=== PATIENT | female | born 1965 | race Caucasian/White ===

== ENCOUNTER 2016-06-02 18:22 | Emergency (ER) | payer MEDICAID, OTHER ==
[~2016-06-02] VITALS: Ht 162.6 cm; Wt 131.5 kg
[~2016-06-02 18:22] MED LIST: AMLO5TAB4 PO; ENAL10TA PO; HYDR25TA4 PO; IBUP-1955 PO; SIMV20TA2 PO
--- NOTE | 2016-06-02 19:10 | NUR ---
To bed 1 a 50 yo female bibself with c/of left knee pain s/p "hearing a crack on the left knee as I pulled myself to exit my car about 7 days ago." Patient also reports pain on the right hand, worse with movement. Patient is aax4, ambulatory. No s/s of acute distress. Dr Iniguez at the bedside for eval.
--- NOTE | 2016-06-02 19:13 | NUR ---
Betsey hammond in [facility] - 06/02/16 at 1913 by RITA report given to nurse Tamara bocanegra
[2016-06-02] MEDS ORDERED: HYDROCODONE/APAP 10/325MG 1 EA TABLET ONE (19:25)
[2016-06-02] MEDS ORDERED: ONDANSETRON 4 MG TAB.RAPDIS ONE (19:25)
[2016-06-02] MEDS ORDERED: HYDROCODONE/APAP 10/325MG 1 EA TABLET PO ONE (19:30)
[2016-06-02] MEDS ORDERED: ONDANSETRON 4 MG TAB.RAPDIS PO ONE (19:30)
--- NOTE | 2016-06-02 19:36 | NUR ---
xr at the bedside.
--- NOTE | 2016-06-02 20:22 | NUR ---
Dr Iniguez at bedside.
--- NOTE | 2016-06-02 20:30 | NUR ---
Patient discharged to home in stable condition. Written and verbal after care instructions given. Patient verbalizes understanding of instruction. Patient ambulatory with a steady gait.
[2016-06-02 20:43] VITALS: BP 165/85
== END 2016-06-02 20:44 | disposition home or self-care (01) ==
LOC: ER 18:26
DX: S60.221A Contusion of right hand, initial encounter (principal); M17.9 Osteoarthritis of knee, unspecified; E78.00 Pure hypercholesterolemia, unspecified; G89.29 Other chronic pain; I10 Essential (primary) hypertension; M19.90 Unspecified osteoarthritis, unspecified site; W10.8XXA Fall (on) (from) other stairs and steps, initial encounter; Y93.89 Activity, other specified; Y92.89 Other specified places as the place of occurrence of the external cause; Y99.9 Unspecified external cause status
CPT/HCPCS: 73130-TC; 73564-TC; A4606; Q0162; Z7610

== ENCOUNTER 2018-10-13 07:01 | Emergency (ER) | payer MEDICAID, OTHER ==
[~2018-10-13] VITALS: Ht 167.6 cm; Wt 117.9 kg
--- NOTE | 2018-10-13 07:10 | NUR ---
PT BIBHUSBAND C/O DIFFICULTY SWALLOWING X3 DAYS. +L EAR ACHE, +SORE THROAT, SEEN BY MD YESTERDAY AND REC'D CORTISONE SHOT X1 DAY AGO. PT IS AAOX4, NOT IN RESPIRATORY DISTRESS, HOOKED TO MONITOR. KEPT RESTED AND COMFORTABLE, WILL CONTINUE TO MONITOR.
--- NOTE | 2018-10-13 07:18 | NUR ---
SEEN AND EXAMINED BY DR. LANIER.
[2018-10-13] MEDS ORDERED: KETOROLAC TROMETHAMINE INJ 30 MG/ML VIAL ONE ×2 (07:21→17:13)
[2018-10-13] MEDS ORDERED: CEFTRIAXONE 1GM BAG (ER ONLY) 50 ML IV ONE (07:21)
[2018-10-13] MEDS ORDERED: DEXAMETHASONE SOD PHOSPHATE 10 MG/ML VIAL ONE (07:21)
[2018-10-13] MEDS ORDERED: DEXAMETHASONE SOD PHOSPHATE 10 MG/ML VIAL IV ONE (07:30)
[2018-10-13] MEDS ORDERED: KETOROLAC TROMETHAMINE INJ 30 MG/ML VIAL IV ONE ×2 (07:30→17:30)
[2018-10-13] MEDS ORDERED: IV NS 0.9% 1,000 ML BAG IV ONE (07:30)
[2018-10-13] MEDS ORDERED: CEFTRIAXONE 1 G in IV D5W 50 ML IV ONE (07:30)
--- NOTE | 2018-10-13 07:30 | NUR ---
IV LINE ESTABLISHED, BLOOD DRAWNED AND SENT TO LAB.
[2018-10-13 07:35] LABS: BASOPHILS # (AUTO) 0.1 /CMM (0.0-0.2); BASOPHILS % (AUTO) 0.3 % (0.0-2.0); HEMATOCRIT 44 % (33-45); HEMOGLOBIN 14.4 g/dL (11.5-14.8); LYMPHOCYTES # (AUTO) 1.3 /CMM (0.8-4.8); LYMPHOCYTES % (AUTO) 5.4 % (20.0-44.0); MEAN CORPUSCULAR HGB CONC 33 g/dl (31.0-36.0); MEAN CORPUSCULAR VOLUME 82 fL (82-100); MONOCYTES # (AUTO) 1.3 /CMM (0.1-1.30); MONOCYTES % (AUTO) 5.4 % (2.0-12.0); NEUTROPHILS # (AUTO) 21.7 /CMM (1.8-8.9); NEUTROPHILS % (AUTO) 88.9 % (43.0-81.0); PLATELET COUNT (AUTO) 299 /CMM (150-450); RED BLOOD CELL COUNT(AUTO) 5.32 MIL/uL (4.0-5.2); WHITE BLOOD COUNT (AUTO) 24.4 K/uL (4.3-11.0)
[2018-10-13 07:55] LABS: CALCIUM, SERUM 9.8 mg/dL (8.5-10.1); CREATININE 0.8 mg/dL (0.6-1.3); POTASSIUM 3.9 mmol/L (3.5-5.1)
[2018-10-13 08:00] LABS: ALBUMIN 3.9 g/dL (3.4-5.0); BILIRUBIN,DIRECT 0.1 mg/dL (0.0-0.2); BILIRUBIN,TOTAL 0.7 mg/dL (0.2-1.0); TOTAL PROTEIN, SERUM 9.4 g/dL (6.4-8.2)
[2018-10-13] MEDS ORDERED: CT SWABBABLE VALVE TRANS SET 1 EA INFUS.SET MC ONE (08:03)
[2018-10-13] MEDS ORDERED: IOHEXOL-300 100 ML VIAL IV ONE (08:03)
[2018-10-13] MEDS ORDERED: IV NS 0.9% 250 ML IV ONE (08:03)
--- NOTE | 2018-10-13 08:08 | NUR ---
PT IS WHEELED TO CT SCAN VIA [facility].
[2018-10-13] MEDS ORDERED: LEVO500T90 PO (08:15)
[2018-10-13 08:20] LABS: LYMPHOCYTES % (MANUAL) 9 % (16-48); MONOCYTES % (MANUAL) 6 % (0-11.0); NEUTROPHILS % (MANUAL) 85 (42-76)
--- NOTE | 2018-10-13 08:44 | NUR ---
CALLED OFFICE OF DR LUDWIG, PER SPECIAL INVESTIGATION UNIT INVESTIGATOR DR LUDWIG HAS NOT BEEN PAID FROM LAST PATIENT, WILL POSSIBLY NOT ACCEPT THIS PT DUE TO INSURANCE. SHE PRESENT CASE AND CALL BACK.
--- NOTE | 2018-10-13 08:54 | NUR ---
CALLED OFFICE OF DR CHAMBERS AND DR WOODY, PER STAFF NEITHER DOCTOR GOES TO [facility] ANY MORE, WILL PRESENT CASE AND CALL BACK
[2018-10-13] MEDS ORDERED: METH4TAB17 PO (08:58)
[2018-10-13] MEDS ORDERED: VANCOMYCIN 1 GM in IV D5W 250 ML IV ONE (09:00)
[2018-10-13] MEDS ORDERED: PIPERACILLIN /TAZOBACTAM 3.375 G in IV D5W 50 ML IV ONE ×2 (09:00→18:00)
--- NOTE | 2018-10-13 09:04 | NUR ---
CALLED [facility] FOR THIS PATIENT AWAITING CALL BACK
--- NOTE | 2018-10-13 09:16 | NUR ---
PER OFFICE OF OZIEL, HE IS IN SURGERY ALL DAY, UNAVAILABLE FOR CONSULT
--- NOTE | 2018-10-13 10:22 | NUR ---
SPOKE TO NICK MCGILL AT [facility], FAXED FACESHEET AND CLINICALS [phone]
[2018-10-13] MEDS ORDERED: MORPHINE SULFATE INJ 2 MG/ML DISP.SYRIN ONE (13:05)
[2018-10-13] MEDS ORDERED: MORPHINE SULFATE INJ 2 MG/ML DISP.SYRIN IV ONE (13:30)
--- NOTE | 2018-10-13 14:19 | NUR ---
CALLED [facility], NO ENT AVAILABLE
--- NOTE | 2018-10-13 14:20 | NUR ---
CALLED [facility], PER HOUSE SUP THIS IS NOT CONSIDER A HIGHER LEVEL OF CARE.
--- NOTE | 2018-10-13 14:21 | NUR ---
CALLED [facility], FAXED FACE SHEET ([phone]). NOT LIKELY TO ACCEPT DUE TO NO BEDS.
--- NOTE | 2018-10-13 14:22 | NUR ---
[facility] CALLED AT [phone] FOR HIGH LEVEL OF CARE [place], DR MARTÍNEZ RECOMMENDS TX TO [facility]
--- NOTE | 2018-10-13 14:29 | NUR ---
CALLED [facility] [place] KATHRYN,SPOKE WITH ISABELA,COMPLETELY FULL BUT STILL WANTS CLINICALS FAXED TO [phone]
--- NOTE | 2018-10-13 14:30 | NUR ---
CALLED NANO AT [facility] TRANSFER CENTER TO FOLLOW UP WITH ACCEPTENCE. SHE STATED THAT SHE IS STILL WAITING FOR CALL BACK FROM ENT
--- NOTE | 2018-10-13 14:57 | NUR ---
[facility] CALLED,SPOKE WITH KEENAN, NO BED
--- NOTE | 2018-10-13 15:04 | NUR ---
BENJI WADE CALLED, AT [facility])
--- NOTE | 2018-10-13 15:50 | NUR ---
[facility], NO [facility]
--- NOTE | 2018-10-13 17:15 | NUR ---
DR VALERIO,ANESTHESIOLOGIST, WHO IS IN OR, INFORMED THAT WE MAY HAVE A DIFFICULT INTUBATION AND THAT DR HIRSCH WANTS HER TO SEE PT BEFORE THEY LEAVE FOR [facility].
--- NOTE | 2018-10-13 17:19 | NUR ---
[facility] CALLED,NO CCT
--- NOTE | 2018-10-13 17:21 | NUR ---
[facility] CALLED, STILL GETTING A HOLD OF THEIR ATTENDING
--- NOTE | 2018-10-13 17:22 | NUR ---
CALLED [facility] FOR CCT TRANSPORT (CODE [address]IRS[address]), 30 MIN ETA, TRIP #[id number].
--- NOTE | 2018-10-13 17:41 | NUR ---
SECOND IV LINE ESTABLISHED L AC G18.
--- NOTE | 2018-10-13 17:44 | NUR ---
DR HIRSCH INFORMED THAT 2ND DOSE OF ZOSYN IS DUE, VERBAL ORDER TO GIVE ANOTHER DOSE,PHARMACY CALLED.
--- NOTE | 2018-10-13 18:03 | NUR ---
DR VALERIO AT BEDSIDE WITH DR HIRSCH
--- NOTE | 2018-10-13 18:15 | NUR ---
DR OZIEL THRASHER, HIS NURSE SAID SHE WILL PAGE HIM AND GIVE US A CALL BACK
--- NOTE | 2018-10-13 18:15 | NUR ---
REPORT GIVEN TO SIDDHARTH ORTIZ OF [facility] FOR DENICE.
--- NOTE | 2018-10-13 18:32 | NUR ---
DR KLEIN CALLED PER ADMIN AND TX TO DR HIRSCH
--- NOTE | 2018-10-13 18:51 | NUR ---
REPORT GIVEN TO CCT RN FOR PT TRANSFER TO [facility]
[2018-10-13 18:52] VITALS: BP 143/73
== END 2018-10-13 18:54 | disposition short-term general hospital (02) ==
LOC: ER 07:05
DX: K12.2 Cellulitis and abscess of mouth (principal); A41.9 Sepsis, unspecified organism; I10 Essential (primary) hypertension; E78.00 Pure hypercholesterolemia, unspecified; M19.90 Unspecified osteoarthritis, unspecified site; Z90.89 Acquired absence of other organs; Z98.890 Other specified postprocedural states
CPT/HCPCS: 36415; 70491; 71045; 80048; 80076; 83605; 83690; 85025; 85730; 87040 ×2; 96365; 96366; 96367; 96368; 96375; 96376; 99291; 99292; J0696 ×2; J1100; J1885 ×2; J2270; J2543 ×2; J3370; J7030; J7050; J7060 ×4; Q9967

== ENCOUNTER 2019-08-09 10:55 | Emergency (ER) | payer MEDICARE, OTHER ==
[~2019-08-09] VITALS: Ht 167.6 cm; Wt 137.4 kg
[~2019-08-09 10:55] MED LIST changes: -AMLO5TAB4 PO; -ENAL10TA PO; -HYDR25TA4 PO; -IBUP-1955 PO; +LEVO500T90 PO; +METH4TAB17 PO; -SIMV20TA2 PO
[2019-08-09 11:00] VITALS: BP 176/99
== END 2019-08-09 11:46 | disposition home or self-care (01) ==
LOC: ER 11:02
DX: M25.552 Pain in left hip (principal); M54.30 Sciatica, unspecified side; I10 Essential (primary) hypertension; E78.00 Pure hypercholesterolemia, unspecified; Z90.89 Acquired absence of other organs; Z98.890 Other specified postprocedural states; Z79.899 Other long term (current) drug therapy

== ENCOUNTER 2020-03-01 02:04 | Emergency (ER) | payer MEDICARE, OTHER ==
[~2020-03-01] VITALS: Ht 167.6 cm; Wt 142.9 kg
--- NOTE | 2020-03-01 02:21 | NUR ---
PATIENT CAME TO ER BED 9 C/ONON-RADIATING MIDSTERNAL CHEST PAIN SINCE 30x MINUTES STORE HOST. PATIENT STATES THAT SHE ALSO FEELS LIKE SHE HAS A LUMP IN HER THROAT, BILATERALLY NUMB FINGERS, AND DIZZINESS. PATIENT IS AAOX4. NO SOB .BREATHING EVENLY AND UNLABORED ON ROOM AIR. AMBULATORY WITH A WALKER.
--- NOTE | 2020-03-01 02:29 | NUR ---
BLOOD DRAWN AND SENT TO THE LAB.
[2020-03-01] MEDS: LORAZEPAM INJ 2 MG/ML VIAL IV ONE (02:30)
[2020-03-01] MEDS ORDERED: ASPIRIN 325 MG TABLET ONE (02:46)
[2020-03-01 02:47] LABS: BASOPHILS % (AUTO) 0.4 % (0.0-2.0); CALCIUM, SERUM 9.2 mg/dL (8.5-10.1); CARBON DIOXIDE 29 mmol/L (21-32); CHLORIDE 99 mmol/L (98-107); CREATININE 0.7 mg/dL (0.6-1.3); EOSINOPHILS % (AUTO) 2.3 % (0.0-6.0); GLUCOSE 164 mg/dL (74-106); HEMATOCRIT 39 % (33-45); HEMOGLOBIN 12.6 g/dL (11.5-14.8); LYMPHOCYTES # (AUTO) 3.3 /CMM (0.8-4.8); LYMPHOCYTES % (AUTO) 32.3 % (20.0-44.0); MEAN CORPUSCULAR HGB CONC 33 g/dl (31.0-36.0); MEAN CORPUSCULAR VOLUME 82 fL (82-100); MONOCYTES # (AUTO) 0.7 /CMM (0.1-1.30); MONOCYTES % (AUTO) 6.8 % (2.0-12.0); NEUTROPHILS % (AUTO) 58.2 % (43.0-81.0); PLATELET COUNT (AUTO) 259 /CMM (150-450); POTASSIUM 3.3 mmol/L (3.5-5.1); RED BLOOD CELL COUNT(AUTO) 4.74 MIL/uL (4.0-5.2); SODIUM SERUM 138 mmol/L (136-145); UREA NITROGEN, BLOOD 10 mg/dL (7-18); WHITE BLOOD COUNT (AUTO) 10.3 K/uL (4.3-11.0)
[2020-03-01] MEDS ORDERED: LORAZEPAM INJ 2 MG/ML VIAL ONE (02:47)
[2020-03-01 02:59] LABS: ALANINE AMINOTRANSFERASE 40 U/L (12-78); ALBUMIN 3.9 g/dL (3.4-5.0); ALKALINE PHOSPHATASE 102 U/L (46-116); ASPARTATE AMINOTRANSFERASE 25 U/L (15-37); B-TYPE NATRIURETIC PEPTIDE 92 PG/ML (0-125); BILIRUBIN,DIRECT 0.1 mg/dL (0.0-0.2); BILIRUBIN,TOTAL 0.2 mg/dL (0.2-1.0); TOTAL PROTEIN, SERUM 8.4 g/dL (6.4-8.2)
[2020-03-01] MEDS: ASPIRIN 325 MG TABLET PO ONE (03:21)
--- NOTE | 2020-03-01 04:46 | NUR ---
Patient discharged to home in stable condition. Written and verbal after care instructions given. Patient verbalizes understanding of instruction.
--- NOTE | 2020-03-01 04:46 | NUR ---
IV removed. Catheter intact and site benign. Pressure and 4x4 applied to site. No bleeding noted.
[2020-03-01 05:23] VITALS: BP 134/77
== END 2020-03-01 04:46 | disposition home or self-care (01) ==
LOC: ER 02:05
DX: R07.89 Other chest pain (principal); F41.9 Anxiety disorder, unspecified; R42 Dizziness and giddiness; E66.01 Morbid (severe) obesity due to excess calories; E78.00 Pure hypercholesterolemia, unspecified; I10 Essential (primary) hypertension; E11.9 Type 2 diabetes mellitus without complications; Z68.43 Body mass index [BMI] 50.0-59.9, adult; Z90.89 Acquired absence of other organs; Z98.51 Tubal ligation status; Z79.899 Other long term (current) drug therapy
CPT/HCPCS: 36415; 71045; 80048; 80076; 83880; 84484; 85025; 93005; 96374; 99285; J2060

== ENCOUNTER 2020-06-19 05:11 | Emergency (ER) | payer MEDICARE, OTHER ==
[~2020-06-19] VITALS: Ht 160 cm; Wt 137.9 kg
--- NOTE | 2020-06-19 05:16 | NUR ---
KAMILLA FROM HOME FOR C/O "I WOKE UP W/ FAST HEARTBEAT, L UNDERARM PAIN AND DIZZINESS" SHE DESCRIBES THE DIZZINESS ROOM SPINNING AROUND HER HEAD AND WORSE WHILE LAYING DOWN. PT DENIED CP, SOB, FEVER OR CHILLS. REPORTED SHE TOOK A DOSE OF NORVASC 5MG? AND UNKNOWN DOSE OF [employer] NETWORK SPECIALIST. PT WAS TRANSFERRED TO BED 3 ER AND WAS PLACED ON A MONITOR . SLIGHTLY ELEVATED BP. WILL CONT TO MONITOR
--- NOTE | 2020-06-19 05:21 | NUR ---
EMT AT BEDSIDE FOR EKG
--- NOTE | 2020-06-19 05:24 | NUR ---
DR ALVAREZ AT BED SIDE
[2020-06-19] MEDS ORDERED: LORAZEPAM 0.5 MG TABLET PO ONE (05:30)
[2020-06-19] MEDS ORDERED: NITROGLYCERIN PACKET 1 GM PACKET TD ONE (05:30)
[2020-06-19] MEDS ORDERED: LORAZEPAM 0.5 MG TABLET ONE (05:32)
[2020-06-19] MEDS ORDERED: NITROGLYCERIN PACKET 1 GM PACKET ONE (05:32)
--- NOTE | 2020-06-19 05:37 | NUR ---
DISPLAY CARVER AT BEDSIDE FOR BLOOD WORK.
[2020-06-19 05:45] LABS: BASOPHILS # (AUTO) 0.1 /CMM (0.0-0.2); BASOPHILS % (AUTO) 1.5 % (0.0-2.0); EOSINOPHILS % (AUTO) 1.8 % (0.0-6.0); HEMATOCRIT 39 % (33-45); HEMOGLOBIN 12.5 g/dL (11.5-14.8); LYMPHOCYTES % (AUTO) 27.4 % (20.0-44.0); MEAN CORPUSCULAR HGB CONC 32 g/dl (31.0-36.0); MEAN CORPUSCULAR VOLUME 83 fL (82-100); MONOCYTES # (AUTO) 0.5 /CMM (0.1-1.30); MONOCYTES % (AUTO) 6.9 % (2.0-12.0); NEUTROPHILS # (AUTO) 4.6 /CMM (1.8-8.9); NEUTROPHILS % (AUTO) 62.4 % (43.0-81.0); PLATELET COUNT (AUTO) 229 /CMM (150-450); RED BLOOD CELL COUNT(AUTO) 4.67 MIL/uL (4.0-5.2); WHITE BLOOD COUNT (AUTO) 7.4 K/uL (4.3-11.0)
--- NOTE | 2020-06-19 06:00 | NUR ---
BACK FROM CT
[2020-06-19 06:20] LABS: ALANINE AMINOTRANSFERASE 47 U/L (12-78); ALBUMIN 3.5 g/dL (3.4-5.0); ALKALINE PHOSPHATASE 89 U/L (46-116); ASPARTATE AMINOTRANSFERASE 32 U/L (15-37); B-TYPE NATRIURETIC PEPTIDE 114 PG/ML (0-125); BILIRUBIN,DIRECT 0.1 mg/dL (0.0-0.2); BILIRUBIN,TOTAL 0.2 mg/dL (0.2-1.0); CALCIUM, SERUM 8.7 mg/dL (8.5-10.1); CARBON DIOXIDE 29 mmol/L (21-32); CHLORIDE 104 mmol/L (98-107); CREATININE 0.7 mg/dL (0.6-1.3); GLUCOSE 149 mg/dL (74-106); POTASSIUM 3.5 mmol/L (3.5-5.1); SODIUM SERUM 141 mmol/L (136-145); TOTAL PROTEIN, SERUM 7.3 g/dL (6.4-8.2); UREA NITROGEN, BLOOD 10 mg/dL (7-18)
[2020-06-19 07:12] VITALS: BP 144/79
--- NOTE | 2020-06-19 07:12 | NUR ---
Pt is medically stable for D/C. IV removed. Catheter intact and site benign. Pressure and 4x4 applied to site. No bleeding noted.Patient discharged to home in stable condition. Written and verbal after care instructions given. Patient verbalizes understanding of instruction.
== END 2020-06-19 07:20 | disposition home or self-care (01) ==
LOC: ER 05:14
DX: I10 Essential (primary) hypertension (principal); R07.89 Other chest pain; R20.2 Paresthesia of skin; E11.9 Type 2 diabetes mellitus without complications; E78.00 Pure hypercholesterolemia, unspecified; E66.01 Morbid (severe) obesity due to excess calories; Z68.43 Body mass index [BMI] 50.0-59.9, adult; Z90.89 Acquired absence of other organs; Z90.49 Acquired absence of other specified parts of digestive tract; Z98.890 Other specified postprocedural states; Z79.899 Other long term (current) drug therapy
CPT/HCPCS: 36415; 70450-TC; 71045-TC; 80048-TC; 80076-TC; 83880; 84484-TC; 85025-TC

== ENCOUNTER 2022-06-21 05:02 | Inpatient (IN) | payer MEDICARE, OTHER ==
[~2022-06-21] VITALS: Ht 162.6 cm; Wt 140.2 kg
--- NOTE | 2022-06-21 06:05 | NUR ---
BIBSELF C/O RIGHT SIDE ABD PAIN RAD TO RIGHT BACK X 6 DAYS. PT IS A/O X 4 RR EVEN AND UNLABORED NO SOB NOTED. PT CONNECTED TO CARDIAC AND POX MONITOR. PT IS AFEBRILE. JALEEL CRUZ. AWAITING MD LOPEZ.
--- NOTE | 2022-06-21 06:10 | NUR ---
URINE COLLECTED SENT TO LAB
--- NOTE | 2022-06-21 06:25 | NUR ---
IV JEFFREY G20 INSERTED ON RIGHT UPPER ARM. BLOOD DRAWN AND SENT TO LAB
[2022-06-21] MEDS ORDERED: ONDANSETRON HCL/PF 4 MG/2 ML VIAL ONE (06:26)
[2022-06-21] MEDS ORDERED: MORPHINE SULFATE INJ 4 MG/ML DISP.SYRIN ONE (06:27)
[2022-06-21] MEDS ORDERED: ONDANSETRON HCL/PF 4 MG/2 ML VIAL IVP ONE (06:30)
[2022-06-21] MEDS ORDERED: MORPHINE SULFATE INJ 2 MG/ML DISP.SYRIN IV ONE (06:30)
[2022-06-21] MEDS ORDERED: IV NS 0.9% 500 ML BAG IV ONE (06:30)
[2022-06-21 07:10] LABS: BASOPHILS # (AUTO) 0.1 K/uL (0.0-0.2); BASOPHILS % (AUTO) 0.5 % (0.0-2.0); EOSINOPHILS % (AUTO) 1.3 % (0.0-6.0); HEMATOCRIT 38 % (33-45); HEMOGLOBIN 12.1 g/dL (11.5-14.8); LYMPHOCYTES # (AUTO) 3.1 K/uL (0.8-4.8); LYMPHOCYTES % (AUTO) 23.8 % (20.0-44.0); MEAN CORPUSCULAR HGB CONC 32 g/dl (31.0-36.0); MEAN CORPUSCULAR VOLUME 81 fL (82-100); MONOCYTES # (AUTO) 0.9 K/uL (0.1-1.30); MONOCYTES % (AUTO) 7.2 % (2.0-12.0); NEUTROPHILS # (AUTO) 8.8 K/uL (1.8-8.9); NEUTROPHILS % (AUTO) 67.2 % (43.0-81.0); PLATELET COUNT (AUTO) 292 K/uL (150-450); RED BLOOD CELL COUNT(AUTO) 4.64 MIL/uL (4.0-5.2); WHITE BLOOD COUNT (AUTO) 13.1 K/uL (4.3-11.0)
[2022-06-21 07:15] LABS: CALCIUM, SERUM 9.6 mg/dL (8.5-10.1); CARBON DIOXIDE 25 mmol/L (21-32); CHLORIDE 99 mmol/L (98-107); CREATININE 0.6 mg/dL (0.6-1.3); GLUCOSE 224 mg/dL (74-106); POTASSIUM 4.9 mmol/L (3.5-5.1); SODIUM SERUM 135 mmol/L (136-145); UREA NITROGEN, BLOOD 19 mg/dL (7-18)
[2022-06-21 07:20] LABS: ALANINE AMINOTRANSFERASE 52 U/L (12-78); ALBUMIN 3.4 g/dL (3.4-5.0); ALKALINE PHOSPHATASE 87 U/L (46-116); ASPARTATE AMINOTRANSFERASE 47 U/L (15-37); BILIRUBIN,DIRECT 0.1 mg/dL (0.0-0.2); BILIRUBIN,TOTAL 0.5 mg/dL (0.2-1.0); LIPASE 80 U/L (73-393); TOTAL PROTEIN, SERUM 7.8 g/dL (6.4-8.2)
--- NOTE | 2022-06-21 07:20 | NUR ---
REPORT GIVEN TO SIDDHARTH MARION AND SIDDHARTH AVILES
--- NOTE | 2022-06-21 07:21 | NUR ---
BROUGHT PT TO CT DEPT
--- NOTE | 2022-06-21 07:30 | NUR ---
CHANGE OF SHIFT REPORT PT RESTING COMFORTABLY IN BED. NO S/S OR C/O PAIN OR DISTRESS NOTED. SIDE RAILS UP X2, CALL LIGHT LEFT WITHIN REACH. PT KEPT CLEAN, DRY, AND COMFORTABLE. WILL GIVE REPORT TO DANIELLA MESSINA. Addendum: 06/21/22 at 1825 by DEANNE CARRASQUILLO RN WRONG TIME: 1830 CHANGE OF SHIFT REPORT PT RESTING COMFORTABLY IN BED. NO S/S OR C/O PAIN OR DISTRESS NOTED. SIDE RAILS UP X2, CALL LIGHT LEFT WITHIN REACH. PT KEPT CLEAN, DRY, AND COMFORTABLE. WILL GIVE REPORT TO DANIELLA MESSINA.
--- NOTE | 2022-06-21 07:30 | NUR ---
PT RECEIVED RESTING COMFORTABLY IN BED. NO S/S OR C/O PAIN OR DISTRESS NOTED. SIDE RAILS UP X2, CALL LIGHT LEFT WITHIN REACH. WILL CONTINUE PLAN OF CARE. Addendum: 06/21/22 at 1824 by DEANNE CARRASQUILLO RN WRONG PATIENT
--- NOTE | 2022-06-21 07:43 | NUR ---
covid swab collected and sent to lab
[2022-06-21] MEDS ORDERED: PIPERACILLIN /TAZOBACTAM 3.375 G in IV D5W 50 ML IV ONE (08:00)
--- NOTE | 2022-06-21 08:39 | NUR ---
report given to kaela for continuation of care Addendum: 06/21/22 at 0912 by RENÉE report given to [place] ricardo
--- NOTE | 2022-06-21 09:10 | NUR ---
MS ADMIT FROM ER AFTER REPORT RECEIVED FROM FAYE MESSINA. PATIENT ORIENTED TO PRIMARY RN, UNIT, ROOM, BED, AND UNIT POLICIES REGARDING PATIENT CARE AND VISITING HOURS. PATIENT ENCOURAGED TO CALL IF THEY NEED SOMETHING. ALL QUESTIONS AND CONCERNS ADDRESSED, PATIENT VERBALIZED UNDERSTANDING.
[2022-06-21] MEDS ORDERED: MELO-105 PO (09:31)
[2022-06-21] MEDS ORDERED: ALBU18HF2 INH (09:31)
[2022-06-21] MEDS ORDERED: OMEG10006 PO (09:31)
[2022-06-21] MEDS ORDERED: ASPI-1420 PO (09:31)
[2022-06-21] MEDS ORDERED: DICL100G34 TP (09:31)
[2022-06-21] MEDS ORDERED: SIMV-46 PO (09:31)
[2022-06-21] MEDS ORDERED: MAGN400T26 PO (09:31)
[2022-06-21] MEDS ORDERED: AMLO-213 PO (09:31)
[2022-06-21] MEDS ORDERED: ERGO500093 PO (09:31)
[2022-06-21] MEDS ORDERED: METF-440 PO (09:31)
[2022-06-21] MEDS ORDERED: METO25TA20 PO (09:31)
[2022-06-21] MEDS ORDERED: HYDR100T27 PO (09:31)
[2022-06-21] MEDS ORDERED: CYAN-51 PO (09:31)
[2022-06-21 10:00] VITALS: BP 135/70
[2022-06-21] MEDS ORDERED: LIDOCAINE 1% INJ 50 ML MDV IJ ONE (13:58)
[2022-06-21] MEDS ORDERED: BUPIVACAINE 0.5 % PF 150 MG/30 ML VIAL ONE (13:58)
[2022-06-21] MEDS ORDERED: BUPIVACAINE MPF 0.5% W/EPI INJ 30 ML VIAL ONE (13:58)
[2022-06-21] MEDS ORDERED: ANESTHESIA TRAY IN PYXIS 1 EA TRAY MC ONE (13:59)
[2022-06-21] MEDS ORDERED: IV D5/0.45 NACL 1,000 ML IV PRN (14:00)
[2022-06-21] MEDS ORDERED: ONDANSETRON HCL/PF 4 MG/2 ML VIAL IVP PRN (14:00)
[2022-06-21] MEDS ORDERED: FENTANYL PF 250MCG/5ML AMPUL ONE (14:18)
[2022-06-21] MEDS ORDERED: HYDROMORPHONE INJ 2 MG/ML DISP.SYRIN ONE (14:19)
[2022-06-21] MEDS ORDERED: MIDAZOLAM HCL 2 MG/2ML VIAL ONE (14:19)
[2022-06-21] MEDS ORDERED: MEPERIDINE25 MG SYR 25 MG/ML VIAL ONE (14:19)
[2022-06-21] MEDS ORDERED: ESMOLOL INJ 100 MG/10 ML VIAL IV ONE (14:45)
[2022-06-21] MEDS ORDERED: SEVOFLURANE 250 ML BOTTLE IH ONE (14:54)
[2022-06-21] MEDS ORDERED: VECURONIUM 10 MG VIAL ONE (15:08)
[2022-06-21] MEDS: PIPERACILLIN /TAZOBACTAM 3.375 G in IV D5W 100 ML IV SCH (17:28)
[2022-06-21] MEDS: MORPHINE SULFATE INJ 2 MG/ML DISP.SYRIN IV PRN (17:29)
[2022-06-21] MEDS ORDERED: ACETAMINOPHEN 325 MG TABLET PO PRN (17:30)
[2022-06-21] MEDS ORDERED: PIPERACILLIN /TAZOBACTAM 4.5 G in IV D5W 50 ML IV SCH (18:00)
--- NOTE | 2022-06-21 18:26 | NUR ---
CHANGE OF SHIFT REPORT PT RESTING COMFORTABLY IN BED. NO S/S OR C/O PAIN OR DISTRESS NOTED. SIDE RAILS UP X2, CALL LIGHT LEFT WITHIN REACH. PT KEPT CLEAN, DRY, AND COMFORTABLE. WILL GIVE REPORT TO DANIELLA MESSINA.
--- NOTE | 2022-06-21 19:30 | NUR ---
MS RN OPENING NOTE RECEIVED PATIENT IN BED, WITH HOB ELEVATED, AWAKE, ALERT AND ORIENTED X4. AFEBRILE AND NOT IN ANY FORM OF ACUTE DISTRESS. ON O2 INHALATION VIA NASAL CANNULA AT 4LPM. S/O LAP CHOLECYSTECTOMY, NO C/O PAIN OR DISCOMFORT AT THIS TIME. WITH DERECK DRAIN INTACT, DRAINING WITH SANGUINEOUS OUTPUT. WITH IV ACCESS ON MONICA 20G RUNNING WITH D5 1/2NS AT 75ML/HR. SAFETY MEASURES IN PLACE. KEPT BED IN LOCKED AND IN LOW POSITION. SIDE RAILS UP X2. ADVISED TO USE THE CALL LIGHT WHEN IN NEED OF ASSISTANCE.
[2022-06-21 20:05] VITALS: BP 109/65
[2022-06-22] MEDS: PIPERACILLIN /TAZOBACTAM 3.375 G in IV D5W 100 ML IV SCH ×3 (01:06→18:36)
[2022-06-22] MEDS: MORPHINE SULFATE INJ 2 MG/ML DISP.SYRIN IV PRN ×3 (05:46→20:27)
--- NOTE | 2022-06-22 06:24 | NUR ---
MS RN CLOSING NOTE PATIENT IN BED, WITH HOB ELEVATED, ASLEEP, BUT EASY TO AROUSE AND RESPONSIVE. ALERT AND ORIENTED X4. AFEBRILE AND NOT IN ANY FORM OF ACUTE DISTRESS. ON O2 INHALATION VIA NASAL CANNULA AT 4LPM. S/P LAP CHOLECYSTECTOMY, MONITORED FOR ANY POSSIBLE COMPLICATION. WITH DERECK DRAIN INTACT, DRAINING WITH SANGUINEOUS OUTPUT AT APPROX. 25ML DURING THE SHIFT. WITH IV ACCESS ON MONICA 20G RUNNING WITH D5 1/2NS AT 75ML/HR. MEDICATED ORDERED. CONTINUOUS ON IV ATB, MONITORED FOR ANY ADVERSE REACTION. SAFETY MEASURES IN PLACE. KEPT BED IN LOCKED AND IN LOW POSITION. SIDE RAILS UP X2. ADVISED TO USE THE CALL LIGHT WHEN IN NEED OF ASSISTANCE. ALL NURSING NEEDS ATTENDED. ENDORSED TO INCOMING SHIFT FOR CONTINUITY OF CARE.
[2022-06-22 06:27] LABS: BASOPHILS % (AUTO) 0.1 % (0.0-2.0); HEMATOCRIT 33 % (33-45); HEMOGLOBIN 10.7 g/dL (11.5-14.8); LYMPHOCYTES # (AUTO) 1.4 K/uL (0.8-4.8); LYMPHOCYTES % (AUTO) 13.5 % (20.0-44.0); MEAN CORPUSCULAR HGB CONC 33 g/dl (31.0-36.0); MEAN CORPUSCULAR VOLUME 82 fL (82-100); MONOCYTES # (AUTO) 0.6 K/uL (0.1-1.30); MONOCYTES % (AUTO) 6.2 % (2.0-12.0); NEUTROPHILS # (AUTO) 8.3 K/uL (1.8-8.9); NEUTROPHILS % (AUTO) 80.2 % (43.0-81.0); PLATELET COUNT (AUTO) 263 K/uL (150-450); WHITE BLOOD COUNT (AUTO) 10.4 K/uL (4.3-11.0)
[2022-06-22 07:07] LABS: CALCIUM, SERUM 8.9 mg/dL (8.5-10.1); CREATININE 0.7 mg/dL (0.6-1.3); MAGNESIUM 1.9 mg/dL (1.8-2.4); PHOSPHORUS 4.5 mg/dL (2.5-4.9); POTASSIUM 4.6 mmol/L (3.5-5.1)
--- NOTE | 2022-06-22 07:13 | NUR ---
MS RN CLOSING NOTE RECEIVED PATIENT IN BED, WITH HOB ELEVATED, ASLEEP, BUT EASILY AWAKEN. AOX4. ON OXYGEN INHALATION VIA NASAL CANNULA AT 4LPM SATURATING AT 98% WITHOUT DIFFICULTY. S/P LAP CHOLECYSTECTOMY, MONITORED FOR ANY POSSIBLE COMPLICATION. AFEBRILE AND NOT IN ANY FORM OF ACUTE DISTRESS. WITH DERECK DRAIN INTACT, SEROSANGUINEOUS FLUID DRAINING. WITH IV ACCESS ON MONICA G#20 RUNNING WITH D5 1/2NS AT 75ML/HR. PAIN IN CONTROLLED AT THIS MOMENT, NO COMPLAINS OF N/V. + BOWEL SOUNDS BUT HASNT PASSED FLATUS YET. ENCOURAGED AMBULATION. SAFETY MEASURES IN PLACE: BED IN LOCKED AND IN LOWEST POSITION. SIDE RAILS UP X2. ORIENTED TO ROOM AND STAFF. WILL CONTINUE TO MONITOR. Addendum: 06/22/22 at 1042 by ABDIAZIZ BARROS RN MS RN OPENING NOTES
[2022-06-22 08:29] VITALS: BP 131/76
--- NOTE | 2022-06-22 08:42 | NUR ---
RN NOTES - DIET CHANGED BACK TO NPO FOR NOW, ACTIVATED DIET TOO EARLY IN ERROR. PATIENT IS YET TO PASS GAS AND A LITTLE NAUSEOUS BUT REFUSED MEDICATION, NO VOMITING. ASKED FOR ICE CHIPS AND TOOTHETTES, GIVEN. WILL CONTINUE TO MONITOR.
--- NOTE | 2022-06-22 10:45 | NUR ---
RN NOTES - PATIENT COMPLAINING OF 9/10 ABDOMINAL PAIN - REQUESTED FOR PAIN MEDICATION - GIVEN MORPHINE 2MG IVP, WILL CONTINUE TO MONITOR.
--- NOTE | 2022-06-22 11:48 | NUR ---
RN NOTES - MRSA SPECIMEN COLLECTED FROM BOTH NARES - CALLED LAB TO GET SPECIMEN IN THE FRIDGE
[2022-06-22 14:40] LABS: CALCIUM, SERUM 9.2 mg/dL (8.5-10.1); CREATININE 0.8 mg/dL (0.6-1.3); POTASSIUM 3.9 mmol/L (3.5-5.1)
[2022-06-22 14:46] LABS: ALBUMIN 3.2 g/dL (3.4-5.0); BILIRUBIN,TOTAL 0.5 mg/dL (0.2-1.0); TOTAL PROTEIN, SERUM 7.4 g/dL (6.4-8.2)
[2022-06-22 16:45] VITALS: BP 121/79
--- NOTE | 2022-06-22 18:47 | NUR ---
MS RN CLOSING NOTE PATIENT IS IN HER ROOM, WALKING AROUND USING HER FWW, STEADY, AOX4, STABLE ON ROOM AIR, BREATHING WITHOUT DIFFICULTY. S/P LAP CHOLECYSTECTOMY, NO POST-OP COMPLICATIONS NOTED, AFEBRILE, PAIN IS CONTROLLED, + BOWEL SOUNDS, WITH DERECK DRAIN DRAINED SEROSANGUINEOUS FLUID ABOUT 23 ML. IV ACCESS ON MONICA G#20 PATENT, FLUSHING WELL DRAINING D5 1/2 NS @75 ML/PER. PAIN IN CONTROLLED AT THIS MOMENT, NO COMPLAINS OF N/V. ENCOURAGED AMBULATION. SAFETY MEASURES IN PLACE: BED IN LOCKED AND IN LOWEST POSITION. SIDE RAILS UP X2. ORIENTED TO ROOM AND STAFF. WILL ENDORSE TO ACADEMIC MANAGER NURSE.
--- NOTE | 2022-06-22 19:10 | NUR ---
RN opening notes Received Pt from morning nurse. Pt is sitting in bed comfortably accompanied by Pt's . On room air. No SOB. No S/s of distress noted. MONICA midline# 20 is clean, intact and infusing well zosyn abx. ABX dressing is intact with DERECK drain intact and patent. Safety precautions is maintained. Bed at low position, brakes locked, side rails upX2, hob elevated and call light is within reach. Will continue to monitor. Addendum: 06/23/22 at 0757 by BRENTON CLEMENTS RN IV site at MONICA # 20 not midline
[2022-06-22 20:00] VITALS: BP 106/67
--- NOTE | 2022-06-22 20:27 | NUR ---
RN notes Pt is complaining of abd pain 10/10 on pain scale. Administered morphine/iv/prn as ordered for pain. VS is stable. safety precautions is maintained. will continue to monitor.
--- NOTE | 2022-06-22 20:55 | NUR ---
RN notes Informed and notify Dr. Nance that Pt is requesting stool softener. MD ordered colace 100mg/bid/po. order carried out.
[2022-06-22] MEDS: DOCUSATE SODIUM 100 MG CAPSULE PO SCH (21:25)
[2022-06-23] MEDS: PIPERACILLIN /TAZOBACTAM 3.375 G in IV D5W 100 ML IV SCH ×2 (01:48→09:26)
[2022-06-23 06:39] LABS: BASOPHILS % (AUTO) 0.4 % (0.0-2.0); EOSINOPHILS % (AUTO) 2.1 % (0.0-6.0); HEMATOCRIT 30 % (33-45); LYMPHOCYTES # (AUTO) 2.9 K/uL (0.8-4.8); LYMPHOCYTES % (AUTO) 31.7 % (20.0-44.0); MEAN CORPUSCULAR HGB CONC 33 g/dl (31.0-36.0); MEAN CORPUSCULAR VOLUME 82 fL (82-100); MONOCYTES # (AUTO) 0.7 K/uL (0.1-1.30); NEUTROPHILS # (AUTO) 5.3 K/uL (1.8-8.9); NEUTROPHILS % (AUTO) 57.8 % (43.0-81.0); PLATELET COUNT (AUTO) 239 K/uL (150-450); RED BLOOD CELL COUNT(AUTO) 3.69 MIL/uL (4.0-5.2); WHITE BLOOD COUNT (AUTO) 9.2 K/uL (4.3-11.0)
[2022-06-23 07:05] LABS: ALBUMIN 2.6 g/dL (3.4-5.0); BILIRUBIN,TOTAL 0.4 mg/dL (0.2-1.0); CALCIUM, SERUM 8.5 mg/dL (8.5-10.1); CREATININE 0.7 mg/dL (0.6-1.3); POTASSIUM 3.4 mmol/L (3.5-5.1); TOTAL PROTEIN, SERUM 6.1 g/dL (6.4-8.2)
[2022-06-23 07:30] VITALS: BP 137/78
--- NOTE | 2022-06-23 07:40 | NUR ---
RN closing notes Pt is resting in bed comfortbaly. On 4 L NC. No SOB. No S/s of distress noted. Vs is stable. Routine meds were given as ordred. MONICA midline# 20 is clean, intact and infusing well D5 1/2ns @ 75ml/hr. abd dressing is intact with DERECK drain intact and patent 35ml. Kept Pt clean, dry and comfortable. All needs met and attended. Safety precautions is maintained. Bed at low position, brakes locked, side rails upX2, hob elevated and call light is within reach. Will endorse to am nurse for DENICE. Addendum: 06/23/22 at 0756 by BRENTON CLEMENTS RN IV site MONICA# 20 not midline
--- NOTE | 2022-06-23 07:50 | NUR ---
RN OPENING NOTE PATIENT AWAKE IN BED RESTING, A/O X 4. NO S/S OF PAIN NOTED AT THIS TIME. ON 4L OXYGEN VIA NC, BREATHING EVEN UNLABORED, NO DISTRESS OR SHORTNESS OF BREATH NOTED. IV ACCESS MONICA #20G INTACT, PATENT AND FLUSHING WELL, RUNNING D5 1/2NS @ 75 ML/HR. FALL AND SAFETY MEASURES IN PLACE, BED ALARM ON, BED IN LOW AND LOCK POSITION, CALL LIGHT AND TABLE WITHIN EASY REACH, SIDE RAILS UP X2. WILL CONTINUE TO MONITOR.
[2022-06-23] MEDS: DOCUSATE SODIUM 100 MG CAPSULE PO SCH ×2 (09:17→17:00)
[2022-06-23] MEDS ORDERED: POTASSIUM CHLORIDE 20 MEQ TAB.PRT.SR PO ONE (11:00)
[2022-06-23] MEDS ORDERED: BISACODYL SUPP (10 MG) 10 MG/SUPP.RECT SUPP.RECT RC PRN (12:00)
[2022-06-23] MEDS ORDERED: MAG HYDROX/AL HYDROX/SIMETH 30 ML UDC PO PRN (13:00)
[2022-06-23 16:00] VITALS: BP 131/82
--- NOTE | 2022-06-23 17:30 | NUR ---
ADULT SECONDARY EDUCATION INSTRUCTOR NOTE PATIENT DISCHARGE IN STABLE MEDICAL CONDITION. A/O X4. V/S TAKEN, STABLE AND RECORDED. NAME BAND REMOVED. SKIN ASSESSMENT DONE AND PICTURES TAKEN. ALL BELONGING CHECKED AND BELONGING LIST SIGNED. HEALTH TEACHING INSTRUCTIONS GIVEN AND VERBALIZED UNDERSTANDING. INSTRUCTED PATIENT TO FOLLOW UP WITH DOCTOR, TO FOLLOW UP WITH DOCTOR HARSHA INFORMATION PROVIDED, AND INCASE OF EMERGENCY TO GO TO NEAREST ER OR CALL 911. WOUND CARE WAS IMPLEMENTED BEFORE DISCHARGE AND EDUCATED PATIENT ON WOUND CARE, PROBVIDED PATIENT WITH WOUND CARE SUPPLY. PATIENT LEFT UNIT VIA WHEELCHAIR WITH NO SIGN OF DISTRESS ACCOMPANIED BY ACID CONDITIONING WORKER TO THE LOBBY. CHARGE NURSE AWARE.
== END 2022-06-23 17:30 | disposition home or self-care (01) | DRG 418 ==
LOC: ER 05:04 → MED 08:33
PROC: 0FT44ZZ Resection of Gallbladder, Percutaneous Endoscopic Approach (ICD-10-PCS; principal; 2022-06-21)
DX: K80.00 Calculus of gallbladder with acute cholecystitis without obstruction (principal); Z68.43 Body mass index [BMI] 50.0-59.9, adult; E66.01 Morbid (severe) obesity due to excess calories; E11.9 Type 2 diabetes mellitus without complications; I10 Essential (primary) hypertension; E78.5 Hyperlipidemia, unspecified; M19.90 Unspecified osteoarthritis, unspecified site; Z20.822 Contact with and (suspected) exposure to COVID-19
CPT/HCPCS: 36415; 71045-TC; 76705-TC; 80048-TC; 80053-TC; 80076-TC; 82962-TC; 83605-TC; 83690-TC; 83735-TC; 84100-TC; 84484-TC; 85025-TC; 85730-TC; 87040-TC; 87081-TC; A4223; A6403; C9803; G0378; J0330; J0690; J1100; J1170; J1885; J2175; J2250; J2270; J2405; J2543; J2704; J2765; J3010; J3490; J7040; J7060

== ENCOUNTER 2022-07-03 12:36 | Emergency (ER) | payer MEDICARE, OTHER ==
[~2022-07-03] VITALS: Ht 162.6 cm; Wt 137.4 kg
[~2022-07-03 12:36] MED LIST changes: +ALBU18HF2 INH; +AMLO-213 PO; +ASPI-1420 PO; +CYAN-51 PO; +DICL100G34 TP; +ERGO500093 PO; +HYDR100T27 PO; -LEVO500T90 PO; +MAGN400T26 PO; +MELO-105 PO; +METF-440 PO; -METH4TAB17 PO; +METO25TA20 PO; +OMEG10006 PO; +SIMV-46 PO
[2022-07-03] MEDS ORDERED: ACETAMINOPHEN 325 MG TABLET PO ONE (13:30)
[2022-07-03] MEDS ORDERED: IBUPROFEN 600 MG TABLET PO ONE (13:30)
[2022-07-03] MEDS ORDERED: IBUPROFEN 600 MG TABLET ONE (14:07)
[2022-07-03] MEDS ORDERED: ACETAMINOPHEN 325 MG TABLET ONE (14:07)
[2022-07-03] MEDS ORDERED: SULF1TAB48 PO (15:06)
[2022-07-03] MEDS ORDERED: CEPH500C2 PO (15:06)
[2022-07-03 15:25] VITALS: BP 145/84
== END 2022-07-03 15:26 | disposition home or self-care (01) ==
LOC: ER 12:48
DX: L03.116 Cellulitis of left lower limb (principal); L03.115 Cellulitis of right lower limb; I10 Essential (primary) hypertension; E78.5 Hyperlipidemia, unspecified; E11.9 Type 2 diabetes mellitus without complications; Z90.89 Acquired absence of other organs; Z90.49 Acquired absence of other specified parts of digestive tract; Z79.899 Other long term (current) drug therapy
CPT/HCPCS: 93970-TC

== ENCOUNTER 2023-06-07 13:04 | Emergency (ER) | payer MEDICARE, OTHER ==
[~2023-06-07] VITALS: Ht 167.6 cm; Wt 134.7 kg
[~2023-06-07 13:04] MED LIST changes: +CEPH500C2 PO; +SULF1TAB48 PO
[2023-06-07 13:13] VITALS: TEMP 98.7
[2023-06-07 13:42] LABS: APPEARANCE,URINE Clear (CLEAR); BILIRUBIN,URINE SMALL (NEGATIVE); BLOOD, URINE Negative Ery/uL (NEGATIVE); COLOR,URINE YELLOW (YELLOW); KETONES,URINE Trace mg/dL (NEGATIVE); LEUKOCYTE ESTERASE ,URINE Small (NEGATIVE); NITRITE, URINE Negative (NEGATIVE); PH,URINE 5.5 (5.0-8.0); PROTEIN,URINE Trace mg/dl (NEGATIVE); UGLUCOSE Negative (NEGATIVE); UROBILINOGEN,URINE 0.2 EU/dL (0.2)
[2023-06-07 13:48] LABS: ADD URINE CULTURE YES; BACTERIA,URINE Few /HPF (None Seen); MUCUS,URINE Few /LPF (None Seen); RBC,URINE NONE SEEN /HPF (0-2)
[2023-06-07 13:57] LABS: BASOPHILS % (AUTO) 0.6 % (0.0-2.0); EOSINOPHILS # (AUTO) 0.1 K/uL (0.0-0.7); EOSINOPHILS % (AUTO) 1.5 % (0.0-6.0); HEMATOCRIT 38 % (33-45); HEMOGLOBIN 12.3 g/dL (11.5-14.8); LYMPHOCYTES # (AUTO) 2.3 K/uL (0.8-4.8); LYMPHOCYTES % (AUTO) 28.1 % (20.0-44.0); MEAN CORPUSCULAR HEMOGLOBIN 26 PG (26.0-33.0); MEAN CORPUSCULAR HGB CONC 32 g/dl (31.0-36.0); MEAN CORPUSCULAR VOLUME 80 fL (82-100); MONOCYTES # (AUTO) 0.6 K/uL (0.1-1.30); MONOCYTES % (AUTO) 7.1 % (2.0-12.0); NEUTROPHILS # (AUTO) 5.1 K/uL (1.8-8.9); NEUTROPHILS % (AUTO) 62.7 % (43.0-81.0); PLATELET COUNT (AUTO) 283 K/uL (150-450); RED BLOOD CELL COUNT(AUTO) 4.76 MIL/uL (4.0-5.2); RED CELL DISTRIBUTION WIDTH 15.6 % (11.5-15.0); WHITE BLOOD COUNT (AUTO) 8.1 K/uL (4.3-11.0)
[2023-06-07 14:10] LABS: ALBUMIN 3.3 g/dL (3.4-5.0); BILIRUBIN,DIRECT 0.1 mg/dL (0.0-0.2); BILIRUBIN,TOTAL 0.3 mg/dL (0.2-1.0); CALCIUM, SERUM 9.3 mg/dL (8.5-10.1); CREATININE 0.7 mg/dL (0.6-1.3); POTASSIUM 4.1 mmol/L (3.5-5.1); TOTAL PROTEIN, SERUM 7.8 g/dL (6.4-8.2)
[2023-06-07] MEDS ORDERED: KETOROLAC TROMETHAMINE INJ 30 MG/ML VIAL ONE (14:24)
[2023-06-07] MEDS: KETOROLAC TROMETHAMINE INJ 30 MG/ML VIAL IV ONE (14:33)
[2023-06-07] MEDS ORDERED: CIPR-262 PO (15:06)
[2023-06-07] MEDS ORDERED: CIPROFLOXACIN HCL 500 MG TABLET ONE (15:39)
[2023-06-07] MEDS: CIPROFLOXACIN HCL 500 MG TABLET PO ONE (15:42)
[2023-06-07 15:56] VITALS: BP 125/80; O2SAT 100
== END 2023-06-07 15:56 | disposition home or self-care (01) ==
LOC: ER 13:04
DX: N39.0 Urinary tract infection, site not specified (principal); I10 Essential (primary) hypertension; E78.5 Hyperlipidemia, unspecified; E11.9 Type 2 diabetes mellitus without complications; M19.90 Unspecified osteoarthritis, unspecified site; Z90.89 Acquired absence of other organs; Z90.49 Acquired absence of other specified parts of digestive tract; Z79.84 Long term (current) use of oral hypoglycemic drugs; Z79.899 Other long term (current) drug therapy
CPT/HCPCS: 99285; 74176; 96374; 85025; 80048; 87086; 83690; 80076; 81001; 36415; J1885

== ENCOUNTER 2023-09-19 12:02 | Emergency (ER) | payer MEDICARE, OTHER ==
[~2023-09-19] VITALS: Ht 170.2 cm; Wt 127.0 kg
[~2023-09-19 12:02] MED LIST changes: +CIPR-262 PO
[2023-09-19] MEDS ORDERED: TRAM50TA2 PO ×2 (13:36→14:47)
[2023-09-19] MEDS ORDERED: CEPH500C2 PO ×2 (13:36→14:47)
[2023-09-19] MEDS ORDERED: KETOROLAC TROMETHAMINE INJ 60 MG/2 ML VIAL IM ONE (14:02)
[2023-09-19] MEDS ORDERED: CEPHALEXIN MONOHYDRATE 500 MG CAPSULE PO ONE (14:03)
[2023-09-19] MEDS: KETOROLAC TROMETHAMINE INJ 60 MG/2 ML VIAL IM ONE (14:06)
[2023-09-19] MEDS: CEPHALEXIN MONOHYDRATE 500 MG CAPSULE PO ONE (14:06)
[2023-09-19 14:12] VITALS: BP 145/85; TEMP 98.2; O2SAT 98
== END 2023-09-19 14:13 | disposition home or self-care (01) ==
LOC: ER 12:59
DX: N39.0 Urinary tract infection, site not specified (principal); E66.01 Morbid (severe) obesity due to excess calories; M54.32 Sciatica, left side; I10 Essential (primary) hypertension; E78.5 Hyperlipidemia, unspecified; E11.9 Type 2 diabetes mellitus without complications; M19.90 Unspecified osteoarthritis, unspecified site; Z86.59 Personal history of other mental and behavioral disorders; Z90.49 Acquired absence of other specified parts of digestive tract; Z68.41 Body mass index [BMI] 40.0-44.9, adult
CPT/HCPCS: 99283; 96372; J1885

== ENCOUNTER 2024-08-02 22:16 | Emergency (ER) | payer MEDICARE, OTHER ==
[~2024-08-02] VITALS: Ht 165.1 cm; Wt 120.2 kg
[~2024-08-02 22:16] MED LIST changes: +TRAM50TA2 PO
[2024-08-02] MEDS ORDERED: MORPHINE SULFATE INJ 4 MG/ML DISP.SYRIN ONE (22:50)
[2024-08-02] MEDS: MORPHINE SULFATE INJ 2 MG/ML DISP.SYRIN IV ONE (22:58)
[2024-08-02] MEDS: ONDANSETRON HCL/PF 4 MG/2 ML VIAL IVP ONE (22:58)
[2024-08-02] MEDS: IV NS 0.9% 1,000 ML BAG IV ONE (22:58)
[2024-08-02 23:08] LABS: BASOPHILS % (AUTO) 0.5 % (0.0-2.0); EOSINOPHILS # (AUTO) 0.2 K/uL (0.0-0.7); EOSINOPHILS % (AUTO) 1.7 % (0.0-6.0); HEMATOCRIT 39 % (33-45); HEMOGLOBIN 12.9 g/dL (11.5-14.8); LYMPHOCYTES # (AUTO) 2.7 K/uL (0.8-4.8); LYMPHOCYTES % (AUTO) 28.6 % (20.0-44.0); MEAN CORPUSCULAR HEMOGLOBIN 27 PG (26.0-33.0); MEAN CORPUSCULAR HGB CONC 33 g/dl (31.0-36.0); MEAN CORPUSCULAR VOLUME 82 fL (82-100); MONOCYTES # (AUTO) 0.6 K/uL (0.1-1.30); MONOCYTES % (AUTO) 6.1 % (2.0-12.0); NEUTROPHILS # (AUTO) 5.9 K/uL (1.8-8.9); NEUTROPHILS % (AUTO) 63.1 % (43.0-81.0); PLATELET COUNT (AUTO) 296 K/uL (150-450); RED BLOOD CELL COUNT(AUTO) 4.77 MIL/uL (4.0-5.2); RED CELL DISTRIBUTION WIDTH 14.6 % (11.5-15.0); WHITE BLOOD COUNT (AUTO) 9.3 K/uL (4.3-11.0)
[2024-08-02 23:19] LABS: ALANINE AMINOTRANSFERASE 40 U/L (12-78); ALBUMIN 3.4 g/dL (3.4-5.0); ALKALINE PHOSPHATASE 81 U/L (46-116); ASPARTATE AMINOTRANSFERASE 23 U/L (15-37); BILIRUBIN,DIRECT 0.2 mg/dL (0.0-0.2); BILIRUBIN,TOTAL 0.6 mg/dL (0.2-1.0); CALCIUM, SERUM 9.5 mg/dL (8.5-10.1); CARBON DIOXIDE 31 mmol/L (21-32); CHLORIDE 99 mmol/L (98-107); CREATININE 0.8 mg/dL (0.6-1.3); GLUCOSE 219 mg/dL (74-106); LIPASE 18 U/L (16-77); POTASSIUM 3.3 mmol/L (3.5-5.1); SODIUM SERUM 139 mmol/L (136-145); TOTAL PROTEIN, SERUM 7.8 g/dL (6.4-8.2); UREA NITROGEN, BLOOD 10 mg/dL (7-18)
[2024-08-02 23:22] LABS: INR 1.01 (0.91-1.10); PARTIAL THROMBOPLASTIN TIME 25.9 SEC (24.3-34.3); PROTHROMBIN TIME 10.7 SECS (9.2-11.1)
[2024-08-02] MEDS ORDERED: ONDA4TAB5 PO (23:44)
[2024-08-03 01:10] VITALS: BP 146/76; TEMP 98.2; O2SAT 99
== END 2024-08-03 01:10 | disposition home or self-care (01) ==
LOC: ER 22:19
DX: K76.0 Fatty (change of) liver, not elsewhere classified (principal); R11.2 Nausea with vomiting, unspecified; I10 Essential (primary) hypertension; E11.9 Type 2 diabetes mellitus without complications; Z79.82 Long term (current) use of aspirin; Z79.84 Long term (current) use of oral hypoglycemic drugs; Z79.899 Other long term (current) drug therapy
CPT/HCPCS: 99285; 74176; 96374; 71045; 96361; 93005; 85025; 80048; 83690; 80076; 36415; 84484; 85730; J2270; J7030

== ENCOUNTER 2025-02-18 09:57 | Emergency (ER) | payer MEDICARE, OTHER ==
[~2025-02-18] VITALS: Ht 165.1 cm; Wt 133.4 kg
[~2025-02-18 09:57] MED LIST changes: +ONDA4TAB5 PO
[2025-02-18] MEDS ORDERED: IBUPROFEN 400 MG TABLET ONE (10:22)
[2025-02-18] MEDS: IBUPROFEN 400 MG TABLET PO ONE (10:25)
[2025-02-18] MEDS ORDERED: ACET-73 PO (10:29)
[2025-02-18] MEDS ORDERED: IBUP-1957 PO (10:29)
[2025-02-18 12:37] VITALS: BP 142/84; TEMP 98.5; O2SAT 97
== END 2025-02-18 12:38 | disposition home or self-care (01) ==
LOC: ER 09:57
DX: M25.511 Pain in right shoulder (principal); M62.838 Other muscle spasm; I10 Essential (primary) hypertension; Z68.42 Body mass index [BMI] 45.0-49.9, adult; Z79.82 Long term (current) use of aspirin; Z79.84 Long term (current) use of oral hypoglycemic drugs; Z79.899 Other long term (current) drug therapy
CPT/HCPCS: 73030-TC

== ENCOUNTER 2025-03-12 05:50 | Emergency (ER) | payer MEDICARE, OTHER ==
[~2025-03-12] VITALS: Ht 165.1 cm; Wt 132.4 kg
[~2025-03-12 05:50] MED LIST changes: +ACET-73 PO; +IBUP-1957 PO
[2025-03-12] MEDS ORDERED: PANTOPRAZOLE 40 MG VIAL ONE (06:31)
[2025-03-12] MEDS ORDERED: LIDOCAINE VISCOUS 2% UD 15 ML UDC ONE (06:32)
[2025-03-12] MEDS ORDERED: MAG HYDROX/AL HYDROX/SIMETH 30 ML UDC ONE (06:32)
[2025-03-12] MEDS: MAG HYDROX/AL HYDROX/SIMETH 30 ML UDC PO ONE (06:36)
[2025-03-12] MEDS: LIDOCAINE VISCOUS 2% UD 15 ML UDC MM ONE (06:36)
[2025-03-12] MEDS: PANTOPRAZOLE 40 MG VIAL IV ONE (06:36)
[2025-03-12 06:51] LABS: PLATELET COUNT (AUTO) 282 K/uL (150-450); RED BLOOD CELL COUNT(AUTO) 4.55 MIL/uL (4.0-5.2); RED CELL DISTRIBUTION WIDTH 14.9 % (11.5-15.0); WHITE BLOOD COUNT (AUTO) 10.0 K/uL (4.3-11.0)
[2025-03-12 07:05] LABS: CALCIUM, SERUM 9.0 mg/dL (8.5-10.1); CREATININE 0.6 mg/dL (0.6-1.3); SODIUM SERUM 140 mmol/L (136-145); UREA NITROGEN, BLOOD 15 mg/dL (7-18)
[2025-03-12 07:17] LABS: ASPARTATE AMINOTRANSFERASE 15 U/L (15-37); NT-PRO BNP 60 pg/mL (0-125); TOTAL PROTEIN, SERUM 7.8 g/dL (6.4-8.2)
[2025-03-12] MEDS ORDERED: FAMO20TA80 PO (08:12)
[2025-03-12] MEDS ORDERED: OMEP20CA15 PO (08:12)
[2025-03-12 08:28] VITALS: BP 156/91; TEMP 98.1; O2SAT 96
== END 2025-03-12 08:29 | disposition home or self-care (01) ==
LOC: ER 05:57
DX: R07.89 Other chest pain (principal); I10 Essential (primary) hypertension; E11.9 Type 2 diabetes mellitus without complications; Z79.82 Long term (current) use of aspirin; Z79.84 Long term (current) use of oral hypoglycemic drugs; Z79.899 Other long term (current) drug therapy; R06.02 Shortness of breath
CPT/HCPCS: 99285; 96374; 71045; 93005; 85025; 80048; 83690; 80076; 36415; 84484; 83880; J2470